=== PATIENT | female | born 1975 | race Caucasian/White ===

== ENCOUNTER 2016-07-26 13:20 | Emergency (ER) | payer BC, OTHER ==
[2016-07-26 13:44] VITALS: TEMP 99.3
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
[2016-07-26 17:58] VITALS: BP 177/91; PULSE 78; RESP 14
[2016-07-26 18:05] VITALS: O2SAT 97
--- NOTE | 2016-07-27 08:06 | CARD ---
APPROVED REPORT EKG Measurement Heart [id number] <Conclusion> Normal sinus rhythm Septal infarct, age undetermined Abnormal ECG
== END 2016-07-26 18:16 | disposition home or self-care (01) ==
LOC: H.ER 13:20
DX: M25.511 Pain in right shoulder (principal); I10 Essential (primary) hypertension; J45.909 Unspecified asthma, uncomplicated